=== PATIENT | female | born 1975 ===

== ENCOUNTER 2025-01-28 08:26 | Outpatient (REF) | payer MEDICAID, SELFPAY | END 2025-01-28 08:27 | disposition home or self-care (01) | LOC: HO.HOSX 08:26 | PROVIDERS: PCP Radiology Diagnostic Radiology; Visit Provider Physical Medicine & Rehabilitation | DX: M79.89 Other specified soft tissue disorders (principal); M53.3 Sacrococcygeal disorders, not elsewhere classified; G89.29 Other chronic pain; M54.50 Low back pain, unspecified; W19.XXXA Unspecified fall, initial encounter; Z79.899 Other long term (current) drug therapy | CPT/HCPCS: 72170; 73590; 93971; 99202 ==

== ENCOUNTER 2025-01-28 08:26 | Outpatient (AMB) | payer MEDICAID, SELFPAY ==
--- OUTSIDE RECORDS SUMMARY | 2007-06-04 20:00 | XMS_ITS | Continuity of Care Document ---
Author Organization [facility] Address [address] [place] [address] Phone Care Team Providers Care Fixed Capital Clerk Name Role Phone Zonia Ortega Unavailable Unavailable Medications Medication Instructions Dosage Effective Dates (start - stop) Status Comments nicotine 21 mg/24 hr daily Patch apply one patch daily - Active cyclobenzaprine 10 mg Tab Qhs PRN - Active Tearfair 1.4 % Eye Drops as directed prn dry eyes - Active fluoxetine 10 mg Cap 1 Every Morning - Active Advance Directives Directive Yes / No Effective Date File Name No Information Encounters Encounter Description Practice Location Reason(s) For Visit Diagnoses Date Provider Providers Copied on Encounter micky [facility], [address] [place] [address],[facility] [address], [place], [id number], tel:[phone] Converted Locations No Information 7 Keagan Brar. [address] [place] [address], [id number]. tel:[phone] [facility], [address] [place] [address],[address], [place], [id number], [place] tel:[phone] Converted Locations No Information 7 Keagan Brar. [address] [place], [place], [id number]. tel:[phone] [facility], [address] [place] [address],[address], [place], [id number], [place] tel:[phone] [facility] Depressive disorder, not elsewhere classifiedCer vicalgia 7 Keagan Brar. [address], [place], [id number]. tel:[phone] micky [facility], [address], [place], [place], [id number], [place] tel:[phone] [facility] Pain in limb 7 Keagan Diazna. [address] [place] [address], [id number]. tel:[phone] [facility], [address], [place], [place], [id number], [place] tel:[phone] [facility] Mixed hyperlipidemi aCommon migraine without mention of intractable migrainePtery gium, unspecifiedCa rbuncle and furuncle of unspecified site 6 Keagan Brar. [address] [place] [address], [id number]. tel:[phone] [facility], [address], [place], [place], [id number], [place] tel:[phone] [facility] Nondependent tobacco use disorderNeed for other specified prophylactic measureRoutin e general medical examination at a health care facility 6 Keagan Brar. [address] [place] [address], [id number]. tel:[phone] [facility], [address], [place], [place], [id number], [place] tel:[phone] [facility] ASTHMA,UNSPEC IFIED TYPE, UNSPECIFIED No Information Family History Family Member Type Diagnosis Age At Onset No Information Immunizations Vaccine Date Status Comments Tetanus and Diphtheria Toxoid administere d Source: New Immunization Record Payers Payer name Insurance type Covered constitution party ID Authoriza tion(s) No Information Social History Type Description Quantity Date Captured Comments Sex Female Smoking Status No Information Chief Complaint And Reason For Visit No Information Reason For Referral Reason For Referral No Information History Of Present Illness Encounter Date Complaint History Of Prese nt Illness No Information Functional Status Date Functional Assessmen t No Information Instructions Date Instruction Additional Infor mation No Information Assessments Type Assessment Date No Information Patient Care Teams Name Effective Dates (start - stop) Status Members No Information
--- OUTSIDE RECORDS SUMMARY | 2025-01-22 23:59 | XMS_ITS | Continuity of Care Document ---
Author Organization [facility] ter Address [address] [place] [id number]- Care Team Providers Care Pedicab Driver Name Role Phone Chad SKINNER, Lizabeth Rodriguez Primary Care Physicia n Encounter [facility] [id number] Date(s): 04/02/24 - 01/22/25 [facility] [address] [place] [address] Attending Physician: Jorge Carlin MD Admitting Physician: Jorge Carlin MD Encounter Type: Preadmit Daystay Allergies, Adverse Reactions, Alerts No Known Allergies Immunizations Given and Recorded Vaccine Date Status Refusal Reason tetanus-diphtheria toxoids (Td) 02/08/10 Given Medications Golytely - oral powder for reconstitution See Instructions, Per instructions from GI., # 4,000 mL, 0 Refills, Maintenance, 03/17/24 4:37:00 PMEDT, [facility]/pharmacy #[id number], Partial fill upon patient request if the prescription is for a schedule IIopioid drug., Per instructions from GI., 160, cm, 03/17/24 16:01:00 EDT, Height Start Date: 03/17/24 Status: Ordered Quantity: 4000.0 Unit: mL Repeat number: 1 Indications: Encounter for screening for malignant neoplasm of colon; ibuprofen 800 mg oral tablet 1 tablet = 800 mg, By Mouth, Every 8 hours, PRN as needed for pain, with food or milk, # 30 tablet,0 Refills, Maintenance, 12/24/14 12:53:28 AM EDT, Tablet Start Date: 12/24/14 Status: Ordered Quantity: 30.0 Unit: tablet Repeat number: 1 omeprazole 20 mg oral enteric coated capsule 1 capsule, By Mouth, 2 times a day, # 180 capsule, 1 Refills, Maintenance, 06/17/24 12:39:00 PM EST, [id number], 160, cm, 03/17/24 16:01:00 EDT, Height Start Date: 06/17/24 Status: Ordered Quantity: 180.0 Unit: capsule Repeat number: 1 Provera 10 mg oral tablet 1 tablet = 10 mg, By Mouth, Daily, daily x 10 days each month, # 10 tablet, 6 Refills, Maintenance,08/24/14 10:08:20 AM EST, Tablet, [facility] [id number] Start Date: 08/24/14 Status: Ordered Quantity: 10.0 Unit: tablet Repeat number: 7 Problem List Condition Confirmation Course Effective Dates Status Health Status Informant Asthma Confirmed Active Morbid obesity with BMI of 40.0-44.9, adult Confirmed Active Chronic rhinosinusitis Confirmed Active Fibroids Confirmed Active , 1, SAb x 1 (twins) Confirmed Active Hypertension 1 Confirmed Active Hypertriglyceridemia Confirmed Active Migraines Confirmed Active Obstructive sleep apnea syndrome 2 Confirmed Active Severe obesity Confirmed Active SH - Social history 3 Confirmed Active Smoker 4 Confirmed Active 1no meds 2AHI 13.[address] [facility] 3No tob, 1 etoh/month, no drugs. 41/2 PPD OR LESS LIFEL[place] Social History Social History Type Response Smoking Status 5-9 cigarettes (betw een 1/4 to 1/2 pack)/day in last 30 days; Type: Cigarettes entered on: 07/14/24 Sex Sex Representation Female (finding) Patient Care team information Care Team Personnel Name: Chad SKINNER, Lizabeth Rodriguez Position: Reference Physician Member Role: PCP Address: [address] [place] [address] Telecom: Care Team Related Persons Name: CORY PALACIOS Name: MATT MCNALLY Insurance Providers Guarantor name: [employer]IAH [employer] Plan Information #: 1 Payer: [employer] Payer Identifier: NA Member Number: [id number] Group Number: [id number] Subscriber Identifier: [id number] Relationship to Subscriber: self Coverage Type: MEDICAID Coverage Verification Date: NA Telecom: NA Address: NA
--- NOTE | 2025-01-28 08:28 | A.OFFVIS_ITS ---
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 Patient was referred and seen by [facility] on 09/13/24, patient had a slip and fall on ice DOI 09/01/24. At that visit she stated that she tried NSAIDs and patches but no relief. At today's visit she states that she has an appointment for an injection for the Lower back pain 02/15/25. She states that the pain is radiating from her left hip down to her foot, constant numbness and tingling. Patient added that she works two hours a day and due to the pain she is limited in her ROM. Allergies No Known Allergies Allergy (Verified 01/28/25 08:34) Medication List - Last Reconciled 01/28/25 by Christina Mcmanus MD lidocaine 5% patches topical HPI Comments Details: Patient referred from [facility] specifically for degenerative changes on facet seen on lumbar x-ray. She presented there on 09/07/2024 after 1 week of lower back pain, after fall on ice. She informs me that she already saw [facility] for the same back pain, already scheduled for injection on 02/15/25. She admits that she has gone to [facility] for back pain, and had received injections previously (last year) but does not recall what kind, and it helped (from her description, I think those were facet injections). She shows me that she has giveway weakness and her left leg is swollen. She says the swelling started 2 weeks after the fall. Has been much worse last week. 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 Review of Systems Const All systems reviewed & are unremarkable except as noted in HPI and below Physical Exam Exam Exam: Constitutional: Patient appears to be in no acute distress, well nourished and well developed. Patient was appropriately conversant and oriented. Good historian. MSK: No specific abnormalities found on inspection of the spine and all extremities. No pain with palpation over the lumbar area. Left SI joint tender. GT nontender. Lumbar ROM was full. Bilateral hip, knee and ankle ROM WNL. No ligamentous laxity or crepitance. No increased effusion. Straight-leg raising test negative. FABERE test positive left. Give-way weakness in left leg due to pain. No increased tone noted. Left calf tenderness and tightness and swelling. Some edema on left foot. Neurological: Give-way weakness in left leg due to pain. No left footdrop. Swain?s negative bilaterally. Babinski was down going bilaterally. Clonus was negative. Gait is antalgic without loss of balance. Vital Signs: BMI result Body Mass Index 44.1 Results Reviewed Results Reviewed: I independently reviewed the results of the following: [ ] I reviewed records from the following: [ ] Assessment & Plan Assessment & Plan (1) Fall: Comment: Fall on ice 09/07/2024 Code(s): W19.XXXA - Unspecified fall, initial encounter Category: Medical Qualifiers: Encounter type: initial encounter Qualified Code(s): W19.XXXA - Unspecified fall, initial encounter (2) Left leg swelling: Code(s): M79.89 - Other specified soft tissue disorders Category: Medical Plan: Left calf swelling, tightness, tenderness appear out of proportion to left lower back pain. Sending for stat ultrasound to rule out DVT. Also sending for pelvic and tibia/fibula x-rays today. (3) Sacroiliac joint dysfunction of left side: Code(s): M53.3 - Sacrococcygeal disorders, not elsewhere classified Category: Medical Plan: Left lower back pain appears to be SI joint related. She has already following with [facility], with an injection scheduled in a few weeks. Not sure though what kind of injections is planned. Patient may continue following with [facility] or return to me after that injection. Plan Waiting for ultrasound results. We will contact patient as soon as I here from Radiology. Assessment and plan discussed with patient, and patient was agreeable. All questions were answered thoroughly. Total of 1 hour spent today including chart review, results review, history taking, physical examination, discussion of assessment and plan, and coordination of care. Christina Mcmanus MD, MERON Board Certified, [place] [employer] and Rehabilitation (ABPMR) Board Certified, [place] [employer] Electrodiagnostic [employer] (ABEM) Orders: Orders XR pelvis min 3V Today M79.89 - Other specified soft tissue disorders, W19.XXXA - Unspecified fall, initial encounter XR tibia fibula LT 2V Today M79.89 - Other specified soft tissue disorders, W19.XXXA - Unspecified fall, initial encounter US venous duplex LE LT Today M79.89 - Other specified soft tissue disorders, W19.XXXA - Unspecified fall, initial encounter Coding Level of Care Code New Pt Level 5 (63253) Diagnoses Fall, initial encounter W19.XXXA Encounter type: initial encounter Left leg swelling M79.89 Sacroiliac joint dysfunction of left side M53.3
[2025-01-28 08:33] VITALS: BMI 44.1
--- OUTSIDE RECORDS SUMMARY | 2025-01-28 08:38 | XMS_ITS | Clinical Summary ---
Author Organization [facility] Address [address] [place] [address] Care Team Providers Care Survey Field Technician Name Role Phone Graciela Sesay Primary Care Provider [phone] Source Comments PLEASE NOTE, if this patient is a minor, it may be UNLAWFUL to discuss sensitive information that is contained in these records (such as FAMILY PLANNING, MENTAL HEALTH or SUBSTANCE ABUSE) with the minor patient's parent or other person without the patient's specific authorization.[facility] Allergies No known active allergies Medications compress.stocking, knee,reg,medIndica tions:Varicose veins of left lower extremity with pain Varicose veins of lower extremity 2 Each 05/07/20 21 Active ketotifen fumarate (ZADITOR) 0.025 % (0.035 %) ophthalmic solutionIndication s:Viral conjunctival disease Place 1 Drop into both eyes 2 (two) times daily 5 mL 08/01/19 23 Active loratadine (CLARITIN) 10 mg tabletIndications: Seasonal allergies TAKE 1 TABLET BY MOUTH ONCE DAILY NEEDED FOR ALLERGIES 90 Tablet 04/10/20 23 Active topiramate (TOPAMAX) 50 mg tabletIndications: Migraine without status migrainosus, not intractable, unspecified migraine type Take 1 Tablet by mouth nightly at bedtime 90 Tablet 1 09/22/19 24 Active GENTEAL TEARS MILD 0.1-0.3 % drop INSTILL 1 DROP INTO BOTH EYES 4 TIMES A DAY. NC 30 mL 2 10/04/19 24 Active artificial tears,hypromellose , (GENTEAL) 0.3 % ophthalmic solutionIndication s:Viral conjunctival disease Place 1 Drop into both eyes 4 (four) times daily 15 mL 10/04/19 24 Active SUMAtriptan (IMITREX) 25 mg tabletIndications: Migraine without status migrainosus, not intractable, unspecified migraine type TAKE 1 TABLET BY MOUTH 1 (ONE) TIME NEEDED FOR MIGRAINE FOR UP TO 1 DOSE 18 Tablet 1 11/26/19 24 Active hydrOXYzine HCL (ATARAX) 25 mg tabletIndications: Anxiety TAKE 1 TABLET BY MOUTH 3 TIMES DAILY NEEDED FOR ANXIETY. 270 Tablet 1 12/08/19 24 Active PARoxetine (PAXIL) 20 mg tabletIndications: Anxiety TAKE 1 TABLET BY MOUTH EVERY DAY IN THE MORNING 90 Tablet 01/07/20 24 Active ondansetron ODT (ZOFRAN-ODT) 4 mg disintegrating tabletIndications: Gastroenteritis Take 1 Tablet by mouth every 8 (eight) hours as needed for nausea 21 Tablet 01/05/20 24 Active acetaminophen (TYLENOL) 500 mg tabletIndications: Gastroenteritis Take 1 Tablet by mouth every 6 (six) hours as needed for pain 90 Tablet 1 01/05/20 24 Active MISCELLANEOUS MEDICAL SUPPLY MISCIndications:Va ricose veins of left lower extremity with pain Please dispense two size medium knee high compression stockings. 15-20 mmgHG Dx: Varicose veins. Duration 99 years 2 Each 01/29/20 24 Active lidocaine (LIDODERM) 5 % patchIndications:A cute left-sided low back pain with left-sided sciatica Place 1 Patch onto the skin daily Apply 1 patch to the affected area for a maximum of 12 hours, followed by removal for 12 hours. 30 Patch 09/08/19 25 Active meloxicam (MOBIC) 15 mg tabletIndications: Chronic bilateral low back pain with left-sided sciatica Take 1 Tablet by mouth once daily 30 Tablet 2 11/12/19 25 Active Active Problems Problem Noted Date Diagnosed Date Acute left-sided low back pain with left-sided s ciatica 09/07/2024 Prediabetes 01/05/2024 Elevated BP without diagnosis of hypertension Pterygium of both eyes 05/01/2023 Overview (05/01/2023): Apr 2023 eye report Cortical age-related cataract of both eyes 05/01 Chronic abdominal pain 09/18/2022 Overview (09/18/2022): Seeing [facility], last seen 06/2022. A/p - CT essentially benign. Concern for PUD, gastritis, h.pylori. Fibroids 02/27/2022 Hypertriglyceridemia 02/27/2022 Migraines 02/27/2022 Asthma ([facility]) 02/27/2022 Chronic sinusitis 02/27/2022 Smoker 02/27/2022 Overview (02/27/2022): 1/2 PPD OR LESS LIFELONG Obstructive sleep apnea syndrome 02/27/2022 Overview (02/27/2022): A[place] 13.1[place] [facility] [place] BMI 45.0-49.9, adult ([facility]) 02/27/2022 Hx of cholecystectomy 02/27/2022 SARS-CoV-2 positive 07/23/2021 Varicose veins of left lower extremity with pain 05/07/2021 Chronic bilateral low back pain with left-sided sciatica 05/07/2021 Resolved Problems Problem Noted Date Diagnosed Date Resolved Date Hypertension 02/27/2022 08/01/2023 Overview (02/27/2022): no meds Encounters Date Type Department Care Team Description 11/09/2024 3:20 PM EDT Telemedicine Visit [address] [phone] Child, FREDY Murillo from Last 3 Months Immunizations Immunization Administration Dates Next Due Flu, Preservative Free 06/25/2023,05/07/2021 Hep B,adult,adjuvanted (HEPLISAV) 10/29/2023, PFIZER COVID VACCINE, PURPLE CAP, 12+ 08/29/2021 ,08/28/2020,08/07/2020 PNEUMOCOCCAL CONJUGATE PCV 20 (Prevnar 20) 06/25 PNEUMOCOCCAL POLYSACCHARIDE PPV23 (Pneumovax 23) 05/07/2021 Pfizer COVID-19 (Comirnaty), Mrna, Lnp-s, Pf, Remy-sucrose, 30 Mcg/0.3 Ml, 12yr+ 09/25/2023 TDAP 05/07/2021 Td (adult),2 Lf tetanus toxo id (TDVAX), preservative free 02/08/2010,07/24/2005 Social History Tobacco Use Types Packs/Day Years Used Date Smoking Tobacco: Every Day Cigarettes Smokeless Tobacco: Never Tobacco Cessation:Ready to Q uit: Not Asked; Counseling Given: Not Answered Comments:5 cigs a day Alcohol Use Standard Drinks/Week Comments Yes 0 (1 standard drink = 0.6 oz pur e alcohol) occ Social Connections Answer Date Recorded Connectedness 0 06/25/2023 Financial Resource Strain Answer Date R ecorded Financial Resource Strain 0 2022 Stress Answer Date Recorded Stress 0 06/25/2023 Physical Activity Answer Date Recorded Physical Activity 0 02/27/2021 Food Insecurity Answer Date Recorded Food 0 06/25/2023 Transportation Needs Answer Date Record ed Transportation 0 06/25/2023 Housing Stability Answer Date Recorded Housing 0 06/25/2023 Safety and Environment Answer Date Corey rded How often does anyone, inclu ding family and friends, physically hurt you? 1 09/07/2024 Utilities Answer Date Recorded Utilities 0 06/25/2023 Employment Answer Date Recorded Employment 0 02/27/2021 Comments No Sex and Gender Information Value Date Recorded Sex Assigned at Female 02/27/2021 2:10 PM PDT Legal Sex Female 1:35 PM PDT Gender Identity Female 02/27/2021 2:10 PM PDT Sexual Orientation Straight 02/27/2021 2: 10 PM PDT Last Filed Vital Signs Vital Sign Reading Time Taken Comments Blood Pressure 120/76 09/07/2024 1:40 PM EDT Pulse 80 09/07/2024 1:40 PM EDT Temperature 37 C (98.6 F) 09/07/2024 1:40 PM EDT Respiratory Rate 24 09/07/2024 1:40 PM EDT Oxygen Saturation 93% 01/29/2024 2:55 PM EDT Inhaled Oxygen Concentration - - Weight 115.2 kg (254 lb) 09/07/2024 1:40 PM EDT Height 160 cm (5' 3 ) 09/07/2024 1:40 PM EDT Body Mass Index 44.99 09/07/2024 1:40 PM EDT Plan of Treatment Health Maintenance Due Date Last Done Comments HPV Screening 1977 Breast Cancer Screening (Mammogram) 2017 CT Colonography 2022 Colonoscopy 2022 Colorectal Cancer Screening 2022 FIT/gFOBT 2022 Fecal DNA 2022 Flexible Sigmoidoscopy 2022 [id number] ( season) 2024 09/25/2023, 08/07/2022, 08/29/2021, Additional history exists Annual Wellness (Adult): Indicated (All Coverage) 06/25/2024 06/25/2023, 05/07/2021, 02/27/2021 Tobacco Cessation Counseling (#1) 10/28/2024 10/29/2023, 05/07/2021, 02/27/2021 Anxiety Screening 10/30/2024 10/31/2023 Pap Smear 11/06/2024 11/06/2021 Diabetes Screening 01/28/2025 01/29/2024, 0 09/25/2023, 09/25/2023, Additional history exists Imm-Influenza (#1) 2025 06/25/2023, 05/07/2021 Hypertension Screening (#1) 09/07/2025 Relationship Safety Screening/Counseling 09/07/2025 09/07/2024, 06/25/2023, 05/07/2021, Additional history exists Lipid Screening 06/25/2026 06/25/2023, 09/0 06/2021, 02/27/2021 Cervical Cancer Screening 11/06/2026 Pap + HPV 11/06/2026 11/06/2021 Imm-DTaP/Tdap/Td (2 - Td or Tdap) 05/07/2031 05/07/2021, 02/08/2010, 07/24/2005 HIV Screening Completed 02/27/2021 Hepatitis C Screening Completed 02/27/2021 Imm-Pneumococcal Completed 06/25/2023, 05/07/2021 Imm-Hepatitis B Completed 10/29/2023, 09/25/2023 Alcohol and Drug Screen Completed 09/08/19 25, 01/05/2024, 10/29/2023, Additional history exists Depression Annual Screen Completed 09/07/2024 Cervical Ablation/Cold-Knife Conization Discontinued Cervical Cryotherapy Discontinued Colposcopy Discontinued Endometrial Biopsy Discontinued Excision/Leep Discontinued HPV Genotyping Discontinued Vaginal Pap Discontinued Vulvoscopy Discontinued Procedures Procedure Name Priority Date/Time Associated Diagnosis Comments COMPREHENSIVE METABOLIC PANEL Routine 01/29/2024 3:41 PM EDT Chronic abdominal pain LIPID PANEL Routine 06/25/2023 11:55 AM EST Hypercholesterolem ia THIN PREP PAP + HPV RNA E6/E7 (Q) Routine 11/06/2021 2:03 PM EDT Cervical cancer screening HIV 1/2 AG & AB W/RFLX (4TH GEN) Routine 02/27/2021 4:17 PM EDT Screening for viral disease HEPATITIS C AB W/RFLX HCV RNA, QT, RT PCR Routine 02/27/2021 4:17 PM EDT Screening for viral disease from Last 3 Months or Most Recently Relevant to Health Maintenance Results * COMPREHENSIVE METABOLIC PANEL (01/29/2024 3:41 PM EDT) GLUCOSE 78 65 - 99 mg/dL [facility] Comment: Fasting reference interval UREA NITROGEN (BUN) 11 7 - 25 mg/dL [facility] CREATININE (blood) 0.61 0.50 - 0.99 mg/dL [facility] EGFR 112 > OR = 60 mL/min/1. 73m2 [facility] BUN/CREATININE RATIO SEE NOTE: 6 [facility] Comment: Not Reported: BUN and Creatinine are within reference range. SODIUM 139 135 - 146 mmol/L [facility] POTASSIUM 4.2 3.5 - 5.3 mmol/L [facility] CHLORIDE 102 98 - 110 mmol/L [facility] CARBON DIOXIDE 27 20 - 32 mmol/L [facility] CALCIUM 9.3 8.6 - 10.2 mg/dL [facility] PROTEIN, TOTAL 7.3 6.1 - 8.1 g/dL [facility] ALBUMIN 4.4 3.6 - 5.1 g/dL [facility] GLOBULIN 2.9 1.9 - 3.7 g/dL (calc) [facility] ALBUMIN/GLOBULI N RATIO 1.5 1.0 - 2.5 (calc) [facility] BILIRUBIN, TOTAL 0.7 0.2 - 1.2 mg/dL [facility] ALKALINE PHOSPHATASE 69 31 - 125 U/L [facility] AST 18 10 - 35 U/L [facility] Comment: Verified by repeat analysis. ALT 18 6 - 29 U/L [facility] Blood Blood / Unknown 01/29/2024 3 :41 PM EDT 01/29/2024 3:42 PM EDT us Graciela HAIRSTON LAB - BLOOD DRAW Edited Result - Final [facility] [address] [address], [facility] [address] [phone] * (ABNORMAL) LIPID PANEL (06/25/2023 11:55 AM EST) CHOLESTEROL, TOTAL 196 <200 mg/dL [facility] HDL CHOLESTEROL 49(L) > OR = 50 mg/dL [facility] TRIGLYCERIDES 188(H) <150 mg/dL [facility] LDL-CHOLESTEROL 117(H) 99 mg/dL (calc) [facility] Comment: Reference range: <100 Desirable range <100 mg/dL for primary prevention; <70 mg/dL for patients with CHD or diabetic patients with > or = 2 CHD risk factors. LDL-C is now calculated using the Ruslan-Mateo calculation, which is a validated novel method providing better accuracy than the Friedewald equation in the estimation of LDL-C. Ruslan SS et al. YUMI. 2013;310(19): 0226-3240 (http://education.[employer]/faq/RRT149) CHOL/HDLC RATIO 4.0 <5.0 (calc) [facility] NON-HDL CHOLESTEROL 147(H) <130 mg/dL (calc) [facility] Comment: For patients with diabetes plus 1 major ASCVD risk factor, treating to a non-HDL-C goal of <100 mg/dL (LDL-C of <70 mg/dL) is considered a therapeutic option. Blood Blood / Unknown 06/25/2023 1 1:55 AM EST 06/25/2023 11:56 AM EST Narrative [email or web address] - 06/26/2023 3:19 AM EST FASTING:YES Callie HAIRSTON LAB - BLOOD DRAW Final Result [facility] [address] [address], [facility] [address] [address] * THIN PREP PAP + HPV RNA E6/E7 (Q) (11/06/2021 2:03 PM EDT) CLINICAL INFORMATION See Note [facility] Comment:None given LMP See Note [facility] Comment:[id number] PREV. PAP See Note [facility] Comment:NONE GIVEN PREV. BX See Note [facility] Comment:NONE GIVEN SOURCE See Note [facility] Comment:Cervix, Endocervix STATEMENT OF ADEQUACY See Note [facility] Comment: Satisfactory for evaluation. Endocervical/transformation zone component present. INTERPRETATION/RESU LT See Note [facility] Comment:Negative for intraep ithelial lesion or malignancy. EXTENSION SUPERVISOR See Note [facility] Comment: GSG, CT(ASCP) CT screening location: [place] [address] COMMENT [facility] HPV MRNA E6/E7 Not Detected Not Detected [facility] Comment: Methodology: Slots Manager-Mediated Amplification This assay detects E6/E7 viral messenger RNA (mRNA) from 14 high-risk HPV types (16,18,31,33,35,39,45,51,52,56,58,59,66,68). The analytical performance characteristics of this assay have been determined by [employer]. The modifications have not been cleared or approved by the FDA. This assay has been validated pursuant to the CLIA regulations and is used for clinical purposes. For additional information, please refer to http://education.[employer]its/faq/ACT356d1 (This link if provided for information/ educational purposes only.) CYTOLOGY Cervix uteri structure / Unknown 11/06/2021 2:03 PM EDT 11/07/2021 7:21 AM EDT Narrative [facility] - 11/08/2021 4:27 AM EDT EXPLANATORY NOTE: The Pap is a screening test for cervical cancer. It is not a diagnostic test and is subject to false negative and false positive results. It is most reliable when a satisfactory sample, regularly obtained, is submitted with relevant clinical findings and history, and when the Pap result is evaluated along with historic and current clinical information. Lizabeth LUISP-[facility] - PATHOLOGY AND CYTOLOGY AMBULATORY Final Result Performing Organization Address [facility] Co de Phone Number [facility] [address] [place] [address], M.A. Transportation Services [address],[facility] [place] [address] * HEPATITIS C AB W/RFLX HCV RNA, QT, RT PCR (02/27/2021 4:17 PM EDT) HEPATITIS C ANTIBODY NON-REACT SUE NON-REACT SUE [facility] SIGNAL TO CUT-OFF 0.02 <1.00 [facility] Comment: HCV antibody was non-reactive. There is no laboratory evidence of HCV infection. In most cases, no further action is required. However, if recent HCV exposure is suspected, a test for HCV RNA (test code 02912) is suggested. For additional information please refer to http://education.[employer]/faq/QEE84i2 (This link is being provided for informational/ educational purposes only.) Blood Blood / Unknown 02/27/2021 4 :17 PM EDT 02/27/2021 4:18 PM EDT Narrative [facility] - 03/01/2021 3:37 AM EDT FASTING:YES us Lizabeth PORTILLO-C LAB - BLOOD DRAW Edited Resu lt - Final Performing Organization Address City/[facility]/ZIP Co de Phone Number [facility] [address] [address], [place] [facility] [address] [address] * HIV 1/2 AG & AB W/RFLX (4TH GEN) (02/27/2021 4:17 PM EDT) HIV AG/AB, 4TH GEN NON-REAC TIVE NON-REAC TIVE [facility] Comment: HIV-1 antigen and HIV-1/HIV-2 antibodies were not detected. There is no laboratory evidence of HIV infection. PLEASE NOTE: This information has been disclosed to you from records whose confidentiality may be protected by state law. If your state requires such protection, then the state law prohibits you from making any further disclosure of the information without the specific written consent of the person to whom it pertains, or as otherwise permitted by law. A general authorization for the release of medical or other information is NOT sufficient for this purpose. For additional information please refer to http://education.[employer]/faq/UPB204 (This link is being provided for informational/ educational purposes only.) The performance of this assay has not been clinically validated in patients less than 2 years old. Blood Blood / Unknown 02/27/2021 4 :17 PM EDT 02/27/2021 4:18 PM EDT Narrative [facility] - 03/01/2021 3:37 AM EDT FASTING:YES Lizabeth Bonilla HEAD [employer]-C LAB - BLOOD DRAW Final Resul t [facility] [address] [address], [address] [address] from Last 3 Months or Most Recently Relevant to Health Maintenance Insurance [id number] Care Teams Survey Field Technician Relationship Specialty Start Date End Date Graciela Sesay PA [facility] [place] [address] PCP - General Primary Care 07/08/23
--- OUTSIDE RECORDS SUMMARY | 2025-01-28 08:38 | XMS_ITS | Clinical Summary ---
Author Organization [employer] [facility] Address [address] [place] [address] Care Team Providers Care Pipe Jeeper Name Role Phone Unavailable Primary Care Provider Unavailabl e Encounters Date Type Department Care Team Description 01/18/2025 Population Health Risk Score [facility] (C3) Department [address] [facility] [address] [place] [address] Provider, Population Health Generic from Last 3 Months Social History Tobacco Use Types Packs/Day Years Used Date Smoking Tobacco: Never Assessed Comments Unknown Sex and Gender Information Value Date Recorded Sex Assigned at Not on file Legal Sex Female 9:16 PM EDT Gender Identity Not on file Sexual Orientation Not on file Plan of Treatment Health Maintenance Due Date Last Done Comments CT Colonography 1977 Colonoscopy 1977 Colorectal Cancer Screening 1977 Depression Screening 1977 FIT DNA/Cologuard 1977 FIT 1977 FOBT 1977 Lipid Panel 1977 SDOH Screening 1977 Sigmoidoscopy 1977 Disability Screening 1977 Alcohol/Substance Use Screening 1989 Tobacco Screening 1989 Family Planning (PISQ) 1992 Hepatitis C Screening 1995 Pap Smear 1998 Cervical Cancer Screening 2007 HPV/Cotest 2007 Mammogram 2017 COVID-19 Vaccine ( season) 2024 09/25/2023, 08/29/2021, 08/28/2020, Additional history exists Influenza Vaccine (#1) 2025 06/25/2023, 2020 Zoster Vaccines (1 of 2) 2027 DTaP/Tdap/Td Vaccines (2 - Td or Tdap) 05/07/2031 05/07/2021, 02/08/2010, 07/24/2005 RSV Patients and Patients Aged 60 years or older (1 - 1-dose 75+ series) 2052 HIV Screening Completed 02/27/2021, 02/27/2021 Pneumococcal Vaccine: Pediatrics (0 to 5 Years) and At-Risk Patients (6 to 49) Years Completed 06/25/2023, 05/07/2021 Hepatitis B Vaccines Completed 10/29/2023, 09/25/19 24 HIB Vaccines Aged Out No longer eligi ble based on patient's age to complete this topic HPV Vaccines Aged Out No longer eligi ble based on patient's age to complete this topic Hepatitis A Vaccines Aged Out No long er eligible based on patient's age to complete this topic IPV Vaccines Aged Out No longer eligi ble based on patient's age to complete this topic Meningococcal B Vaccine Aged Out No l onger eligible based on patient's age to complete this topic Meningococcal Vaccine Aged Out No tabitha tiara eligible based on patient's age to complete this topic RSV under 20 months Aged Out No longe r eligible based on patient's age to complete this topic Rotavirus Vaccines Aged Out No longer eligible based on patient's age to complete this topic
--- OUTSIDE RECORDS SUMMARY | 2025-01-28 08:38 | XMS_ITS | Clinical Summary ---
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 Name Role Phone ChildChidi Primary Care Provider [phone] Social History Tobacco Use Types Packs/Day Years Used Date Smoking Tobacco: Never Assessed Comments Unknown Sex and Gender Information Value Date Recorded Sex Assigned at Not on file Legal Sex Female 8:29 AM EST Gender Identity Not on file Sexual Orientation Not on file Plan of Treatment Health Maintenance Due Date Last Done Comments DTaP,Tdap,and Td Vaccines (1 - Tdap) 1996 Hepatitis B Vaccines (1 of 3 - 19+ 3-dose series) 1996 Cervical Cancer Screening: P ap Smear 1998 Colorectal Cancer Screening: Colonoscopy 06/02/2022 HIV Screening 06/02/2022 Hepatitis C Screening 06/02/2022 Social Influencers of Health Screening 06/02/2022 COVID-19 Vaccine ( - 2023-2 5 season) 2024 Depression Screening 06/30/2024 Influenza Vaccine (#1) 2025 Breast Cancer Screening 07/10/2025 07/10/2023 HIB Vaccines Aged Out No longer eligi [...] on patient's age to complete this topic MMR Vaccines Aged Out No longer eligi ble based on patient's age to complete this topic Meningococcal ACWY Vaccine Aged Out N o longer eligible based on patient's age to complete this topic Meningococcal B Vaccine Aged Out No l onger eligible based on patient's age to complete this topic Pneumococcal Vaccine: Pediat rics (0 to 5 Years) and At-Risk Patients (6 to 49 Years) Aged Out No longer eligi ble based on patient's age to complete this topic RSV Immunization Patients Un celso 20 months Aged Out No longer eligible b ased on patient's age to complete this topic Varicella Vaccines Aged Out No longer eligible based on patient's age to complete this topic Procedures Procedure Name Priority Date/Time Associated Diagnosis Comments [facility] SCREENING DIGITAL Routine 07/10/2023 3:46 PM EST Encounter for screening mammogram for malignant neoplasm of breast from Last 3 Months or Most Recently Relevant to Health Maintenance Results * [facility] SCREENING DIGITAL (07/10/2023 3:46 PM EST) Anatomical Region Laterality Modality Mammography 07/10/2023 9:31 AM EST Narrative 07/10/2023 3:46 PM EST [facility] Diagnostic Imaging Department [address] [place] [address] Patient: KALIEJOSIAH /Age/Sex: 1975 - 48 - F Unit#: [id number] Location/Status: [facility] CLI Mnemonic/Ordering Site: [facility] Ordering Physician: GALLITO SCRUGGS [facility] Screening Digital - 07/10/23957 Report Status:Signed EXAM: [facility] Screening Digital EXAM DATE AND TIME: 07/10/2023 9:59 AM HISTORY: Screening. Family history of breast carcinoma including maternal and paternal aunts. COMPARISON: 10/05/18, 12/02/13, 10/29/12 ([facility], [place], [place]) TECHNIQUE: Bilateral digital breast tomosynthesis was performed in the CC and MLO projections. Computer aided detection with [employer] 3D 3.1 was employed. TISSUE DENSITY: b. There are scattered areas of fibroglandular density. FINDINGS: The right MLO view does not include the inferior skin line. A repeat view is recommended for complete exam. A 5 mm asymmetry is seen in the lateral right breast, CC view only, possibly summation artifact. CC spot compression tomosynthesis views are recommended for further assessment. The nodular parenchymal pattern seen in the left breast is without significant change. No grouped microcalcifications or areas of architectural distortion are seen in either breast. The skin and vascularity are unremarkable. IMPRESSION: 1. Repeat right MLO view to include inferior skin line. 2. Right breast asymmetry, for which additional views are recommended. 3. Stable mammographic appearance of the left breast. No evidence of malignancy is seen. The patient will be called back. BI-RADS: Category 0: Incomplete - Need Additional Imaging Evaluation RECOMMENDATION(S): 1: Special mammographic view(s) needed RIGHT Dictating Physician: TEVIN WATERS MD Electronically Signed by: TEVIN WATERS MD Dic Date/Time: 07/10/23 1543 Sign date/Time: 07/10/23 1546 Procedure Note Tevin Waters MD - 02/16/2024 [facility] Diagnostic Imaging Department [address] [place] [id number] Patient: JADEJOSIAH /Age/Sex: 1975 - 48 - F Unit#: [id number] Location/Status: SPDIMAM/REG CLI Mnemonic/Ordering Site: [facility] Ordering Physician: GALLITO SCRUGGS [facility] Screening Digital - 07/10/23 - 0958 Report Status:Signed EXAM: [facility] Screening Digital EXAM DATE AND TIME: 07/10/2023 9:59 AM HISTORY: Screening. Family history of breast carcinoma including maternaland paternal aunts. COMPARISON: 10/05/18, 12/02/13, 10/29/12 ([facility], [place], [place]) TECHNIQUE: Bilateral digital breast tomosynthesis was performed in the CCand MLO projections. Computer aided detection with Pay[employer] 3D 3.1was employed. TISSUE DENSITY: b. There are scattered areas of fibroglandular density. FINDINGS: The right MLO view does not include the inferior skin line. A repeat viewis recommended for complete exam. A 5 mm asymmetry is seen in the lateral right breast, CC view only,possibly summation artifact. CC spot compression tomosynthesis views arerecommended for further assessment. The nodular parenchymal pattern seen in the left breast is withoutsignificant change. No grouped microcalcifications or areas of architecturaldistortion are seen in either breast. The skin and vascularity are unremarkable. IMPRESSION: 1. Repeat right MLO view to include inferior skin line. 2. Right breast asymmetry, for which additional views are recommended. 3. Stable mammographic appearance of the left breast. No evidence ofmalignancy is seen. The patient will be called back. BI-RADS: Category 0: Incomplete - Need Additional Imaging Evaluation RECOMMENDATION(S): 1: Special mammographic view(s) needed RIGHT Dictating Physician: TEVIN WATERS MD Electronically Signed by: TEVIN WATERS MD Dic Date/Time: 07/10/23 1543 Sign date/Time: 07/10/23 154 Gallito HAIRSTON IMG BI PROCEDURES Final R esult from Last 3 Months or Most Recently Relevant to Health Maintenance Care Teams Fish Salter Relationship Specialty Start Date End Date ChildChidi [place] [address] [facility] [place] [id number] PCP - General Physician Apprenticeship Consultant 11/15/24
== END 2025-01-28 09:30 | disposition home or self-care (01) ==
LOC: HO.HOS 08:26
PROVIDERS: PCP Radiology Diagnostic Radiology; Visit Provider Physical Medicine & Rehabilitation
DX: M53.3 Sacrococcygeal disorders, not elsewhere classified (principal); W19.XXXA Unspecified fall, initial encounter; M79.89 Other specified soft tissue disorders
CPT/HCPCS: 99205

== ENCOUNTER 2025-01-28 09:10 | Outpatient (REF) | payer MEDICAID, SELFPAY ==
--- NOTE | ~2025-01-28 | US_ITS ---
EXAMINATION: US TRIPLEX LOWER EXTREMITY, LEFT CLINICAL INFORMATION: Edema and pain, left lower extremity COMPARISON: None available. TECHNIQUE: Color-flow triplex imaging with spectral analysis and compression Doppler were performed on the left lower extremity. FINDINGS: Respiratory variation, normal compression and augmented flow are demonstrated in the interrogated left common femoral vein, superficial femoral vein, profunda femoral vein, popliteal vein and midcalf peroneal and posterior tibial venous segments. There is no Rudolph's cyst. US/US venous duplex LE IMPRESSION: No acute deep venous thrombosis interrogated veins, left lower extremity. Negative for DVT. Electronically signed by: Lon Larry MD 01/28/2025 09:40 AM EDT
--- NOTE | ~2025-01-28 | XR_ITS ---
EXAMINATION: X-ray left tibia and fibula. CLINICAL INFORMATION: Status post fall. TECHNIQUE: AP and lateral views. COMPARISON: None FINDINGS: No acute cortical disruption. No lytic or blastic lesions. No metallic or radiopaque foreign body. No subcutaneous emphysema. XR/XR tibia fibula LT 2V IMPRESSION: No acute fracture. Electronically signed by: Lon Larry MD 01/28/2025 11:01 AM EDT
--- NOTE | ~2025-01-28 | XR_ITS ---
EXAMINATION: XR PELVIS CLINICAL INFORMATION: W19.XXXA - Unspecified fall, initial encounter COMPARISON: None available. TECHNIQUE: AP view of the pelvis. FINDINGS: Degenerative changes in the symphysis pubis and right sacroiliac joint. No acute cortical disruption. No lytic or blastic lesions. Facet joint hypertrophy and endplate sclerosis at L4-5 and L5-S1. Sclerosis along the articular surface of the acetabulum. The coxofemoral joints are intact with normal alignment.. XR/XR pelvis 1-2V IMPRESSION: No acute fracture. Degenerative changes in the symphysis pubis. Electronically signed by: Lon Larry MD 01/28/2025 11:00 AM EDT
== END 2025-01-28 09:11 | disposition home or self-care (01) ==
LOC: HO.US 09:10
PROVIDERS: PCP Physical Medicine & Rehabilitation; Visit Provider Physical Medicine & Rehabilitation
DX: Z13.89 Encounter for screening for other disorder (principal)
CPT/HCPCS: 72170; 73590; 93971

== ENCOUNTER → 2025-01-28 09:15 | Outpatient (BNV) | payer MEDICAID, SELFPAY | PROVIDERS: PCP Physical Medicine & Rehabilitation; Visit Provider Radiology Diagnostic Radiology | DX: M79.662 Pain in left lower leg (principal); R60.0 Localized edema; M25.552 Pain in left hip; M16.12 Unilateral primary osteoarthritis, left hip | CPT/HCPCS: 72170; 73590; 93971 ==